=== PATIENT | female | born 1980 | race Two or more races ===

== ENCOUNTER 2017-08-14 15:38 | Emergency (ER) | payer SELFPAY ==
[2017-08-14] MEDS: ONDANSETRON ODT 4 MG TAB.RAPDIS. PO (16:55)
[2017-08-14] MEDS: ALBUTEROL SULFATE 2.5 MG/3 ML NEBU. NEB (17:02)
== END 2017-08-14 18:15 | disposition home or self-care (01) ==
LOC: ER 15:38
DX: R07.89 Other chest pain (principal); R11.2 Nausea with vomiting, unspecified; R05 Cough; Z98.51 Tubal ligation status; V43.62XA Car passenger injured in collision with other type car in traffic accident, initial encounter; Y93.89 Activity, other specified; Y92.410 Unspecified street and highway as the place of occurrence of the external cause; Y99.8 Other external cause status
CPT/HCPCS: 71045; 94640; 99283; J7613; Q0162